=== PATIENT | female | born 1955 | race Caucasian/White ===

== ENCOUNTER → 2020-03-14 | Outpatient (CLI) | payer BC | LOC: HEART 5 11:27 | DX: J45.40 Moderate persistent asthma, uncomplicated (principal) | CPT/HCPCS: 71046; 94010; 94729 ==

== ENCOUNTER → 2020-06-14 | Outpatient (CLI) | payer BC | LOC: HEART 5 15:41 | DX: J45.40 Moderate persistent asthma, uncomplicated (principal) | CPT/HCPCS: 94010; 95012 ==